=== PATIENT | male | born 1980 ===

== ENCOUNTER 2024-09-26 05:45 | Day surgery (SDC) | payer OTHER ==
[2024-09-26] MEDS ORDERED: LACTATED RINGERS IV ONE (05:46)
[2024-09-26] MEDS ORDERED: Lidocaine 2% 20 ML MDV NERVRT ONE (05:46)
[2024-09-26] MEDS ORDERED: Propofol 200 MG/20 ML SDV IV ONE (05:46)
[2024-09-26] MEDS: Lactated Ringers 1,000 ML IV SCH (06:15)
== END 2024-09-26 08:00 | disposition home or self-care (01) ==
LOC: DL.ENDO 05:45
PROVIDERS: ATTEND Internal Medicine Gastroenterology
DX: Z12.11 Encounter for screening for malignant neoplasm of colon (principal)
CPT/HCPCS: 45378; J7120; J2003; J2704